=== PATIENT | male | born 1960 | race Caucasian/White ===

== ENCOUNTER 2016-05-05 12:46 | Emergency (ER) | payer BC ==
[2016-05-05 12:52] VITALS: TEMP 98; BMI 32.5
--- NOTE | 2016-05-05 14:54 | PDOC ---
History of Present Illness - General Chief Complaint: Laceration Stated Complaint: RT HAND INJURY Time Seen by Provider: 05/05/16 13:23 History Source: Patient Exam Limitations: No Limitations - History of Present Illness Initial Comments: 05/05/16 14:57 My Chief Complaint: right middle finger cut on glass History of present illness: Patient is a 55-year-old male with a history of hypertension and GERD here today after sustaining a laceration to his right middle finger cutting it on glass when emptying the garbage. He reports that last did not break with no glass was remaining and cut. Patient has a linear laceration to his right dorsal middle finger over middle phalange. He has full range of motion of right middle finger. Patient denies any numbness of finger. Pt.unsure of tetanus status. Pt. 's doc called back to say they do not have a record of him having his tetanus done there. Pt. had left when his MD's office called back, his or he will call them to follow up to ensure tetanus is done, they were told that he could return her for tetanus but would have to re register. 05/05/16 21:39 Occurred: reports: just prior to arrival Severity: reports: mild Pain Location: reports: upper extremity (rt. middle finger dorsal aspect laceration ) Method of Injury: Yes: other (cut by piece of glass rt. middle dorsal finger) Loss of Consciousness: no loss of consciousness (cut by glass) Past History - Past Medical History Allergies/Adverse Reactions: Allergies Allergy/AdvReac Type Severity Reaction Status Date / Time No Known Allergies Allergy Verified 05/05/16 12:48 Home Medications: Ambulatory Orders Lansoprazole [Prevacid -] 30 mg PO DAILY 12/16/13 Olmesartan Medoxomil [Benicar -] 20 mg PO DAILY 12/16/13 Anemia: No Asthma: No Cancer: No Cardiac Disorders: No CVA: No COPD: No CHF: No Dementia: No Diabetes: No GI Disorders: Yes (reflux) Disorders: No HTN: Yes Hypercholesterolemia: No Liver Disease: No Seizures: No Thyroid Disease: No - Surgical History Abdominal Surgery: No Appendectomy: Yes Cardiac Surgery: No Cholecystectomy: No Lung Surgery: No Neurologic Surgery: No Orthopedic Surgery: No - Psycho/Social/Smoking Cessation Hx Anxiety: No Suicidal Ideation: No Smoking Status: No Smoking History: Never smoked Have you smoked in the past 12 months: No Number of Cigarettes Smoked Daily: 0 If you are a former smoker, when did you quit?: 4 YRS AGO Information on smoking cessation initiated: No 'Breaking Loose' booklet given: 12/16/13 Hx Alcohol Use: No Drug/Substance Use Hx: No Substance Use Type: None Hx Substance Use Treatment: No Review of Systems - Review of Systems Able to Perform ROS?: Yes Constitutional: No: Symptoms Reported HEENTM: No: Symptoms Reported Respiratory: No: Symptoms reported Cardiac (ROS): No: Symptoms Reported ABD/GI: No: Symptoms Reported Musculoskeletal: No: Symptoms Reported Integumentary: Yes: Other (laceration linear rt. middle dorsal finger ) Neurological: No: Symptoms reported *Physical Exam - Vital Signs Last Vital Signs Temp Pulse Resp BP Pulse Ox 98.0 F 76 18 148/100 100 05/05/16 12:48 05/05/16 12:48 05/05/16 12:48 05/05/16 12:48 05/05/16 12:48 - Physical Exam General Appearance: Yes: Appropriately Dressed HEENT: positive: EOMI, MARIE Respiratory/Chest: positive: Lungs Clear, Normal Breath Sounds. negative: Chest Tender, Respiratory Distress Cardiovascular: positive: Regular Rhythm, Regular Rate, S1, S2 Extremity: positive: Normal Capillary Refill, Normal Range of Motion (rt. middle finger over DIP, PIP jt, and mcp jt ) Integumentary: positive: Normal Color, Other (rt. 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 middle finger), Respond to painful stimul (rt middle finger), Responsive. negative: Sensory Deficit (rt. middle finger ) Procedures - Consent Consent obtained: From Patient - Laceration/Wound Repair Right Proximal Dorsal 3rd digit Finger Wound Length: 2.6 to 5.0 cm Wound Explored: clean Wound's Depth, Shape: superficial, linear (rt. middle finger ) Irrigated w/ Saline: Yes Betadine Prep: Yes Anesthesia: 1% Lidocaine Amount of Anesthetic (ccs): 5 (digital block rt. middle finger ) Wound Repaired With: Sutures Suture Size/Type: 5:0 Number of Sutures: 5 (interrupted) Sterile Dressing Applied: Yes Progress: 05/05/16 14:56 After digital block patient started to complain of feeling lightheaded looked pale and started to become slightly diaphoretic patient's head of bed was lowered however patient did not feel better patient given O2 via nasal cannula at 3 L patient within 5 minutes was feeling much better, O2 remained for 15 minutes Medical Decision Making - Medical Decision Making 05/05/16 14:59 Patient is a 55-year-old male with a history of hypertension and GERD here today after sustaining a laceration to his right middle finger cutting it on glass when emptying the garbage. He reports that last did not break with no glass was remaining and cut. Patient has a linear laceration to his right dorsal middle finger over middle phalange. He has full range of motion of right middle finger. Patient denies any numbness of finger. He is right handed Middle finger laceration rt. Plan: digital block performed to right middle finger with 5 mL's of lidocaine 1% patient became slightly diaphoretic and complaining of lightheadedness oxygen was applied 3 L via nasal annular within 5 minutes patient started to feel better oxygen remained 15 minutes 5 sutures applied to right middle finger interrupted 05/05/16 15:08 Feeling much better will discharge to home *DC/Admit/Observation/Transfer Diagnosis at time of Disposition: Laceration - Discharge Dispostion Disposition: HOME Condition at time of disposition: Stable - Referrals Referrals: Annalisa Azevedo [Primary Care Provider] - - Patient Instructions Additional Instructions: Wound dry today then may wash tomorrow with antibacterial soap and water pat dry and apply tiny amount of bacitracin ointment twice daily cover with bandage air out at night Take ibuprofen or acetaminophen as needed as directed by tie loader for pain Return here in 10-12 days for suture removal or sooner if any redness around wound or discharge from wound or any increased warmth from wound Patient voiced understanding of discharge instructions and all questions were answered
[2016-05-05 15:16] VITALS: BP 144/8; PULSE 65
== END 2016-05-05 15:31 | disposition home or self-care (01) ==
LOC: JERFT 12:46
PROC: 0HQFXZZ Repair Right Hand Skin, External Approach (ICD-10-PCS; principal; 2016-05-05)
DX: S61.212A Laceration without foreign body of right middle finger without damage to nail, initial encounter (principal); W25.XXXA Contact with sharp glass, initial encounter; Y93.E9 Activity, other interior property and clothing maintenance; Y92.018 Other place in single-family (private) house as the place of occurrence of the external cause; Y99.8 Other external cause status
CPT/HCPCS: 99281-25

== ENCOUNTER 2017-08-18 12:36 | Emergency (ER) | payer BC ==
[2017-08-18 12:42] VITALS: TEMP 98.5; BMI 31.8
--- NOTE | 2017-08-18 14:05 | PDOC ---
History of Present Illness <Sharron Gu - Last Filed: 08/18/17 16:45> - General History Source: Patient Exam Limitations: No Limitations - History of Present Illness Initial Comments: 08/18/17 14:00 The patient is a 56M with a PMH of HTN and GERD who presents with complaints of feeling "off". The patient states that 5 days ago, he began to feel "off" which he describes as a "knot" in his stomach along with a bifrontal, dull headache. This initially started intermittently and then became constant yesterday. He also states that yesterday he took his BP and it read 202/100's. He states that he takes all of his medications as prescribed. He does admit to more stress from work. He has never had this before. He denies any CP, SOB, fever, chills, nausea, vomiting, numbness, tingling, or weakness. <Mariano Kapoor - Last Filed: 08/18/17 18:50> - General Chief Complaint: Lightheaded Stated Complaint: DIZZINESS, BP PROBLEMS Time Seen by Provider: 08/18/17 13:20 Past History <Sharron Gu - Last Filed: 08/18/17 16:45> - Past Medical History Anemia: No Asthma: No Cancer: No Cardiac Disorders: No CVA: No COPD: No CHF: No Dementia: No Diabetes: No GI Disorders: Yes (reflux) Disorders: No HTN: Yes Hypercholesterolemia: No Liver Disease: No Seizures: No Thyroid Disease: No - Surgical History Abdominal Surgery: No Appendectomy: Yes Cardiac Surgery: No Cholecystectomy: No Lung Surgery: No Neurologic Surgery: No Orthopedic Surgery: No - Suicide/Smoking/Psychosocial Hx Smoking Status: No Smoking History: Never smoked Have you smoked in the past 12 months: No Number of Cigarettes Smoked Daily: 0 If you are a former smoker, when did you quit?: 4 YRS AGO 'Breaking Loose' booklet given: 12/16/13 Hx Alcohol Use: No Drug/Substance Use Hx: No Substance Use Type: None Hx Substance Use Treatment: No <Mariano Kapoor - Last Filed: 08/18/17 18:50> - Past Medical History Allergies/Adverse Reactions: Allergies Allergy/AdvReac Type Severity Reaction Status Date / Time Penicillins Allergy Severe Difficulty Verified 08/18/17 12:48 Breathing Home Medications: Ambulatory Orders Lansoprazole [Prevacid -] 30 mg PO DAILY 12/16/13 Olmesartan Medoxomil [Benicar -] 20 mg PO DAILY 12/16/13 Review of Systems - Review of Systems Able to Perform ROS?: Yes Comments:: 08/18/17 14:16 GENERAL/CONSTITUTIONAL: No fever or chills. No weakness. HEAD, EYES, EARS, NOSE AND THROAT: No change in vision. No ear pain or discharge. No sore throat. CARDIOVASCULAR: No chest pain, palpitations, or lightheadedness. RESPIRATORY: No cough, wheezing, shortness of breath, or hemoptysis. GASTROINTESTINAL: Positive for "knot" in stomach. No nausea, vomiting, diarrhea , constipation, or abdominal pain. GENITOURINARY: No dysuria, frequency, hematuria, or change in urination. MUSCULOSKELETAL: No joint or muscle swelling or pain. No neck or back pain. SKIN: No rash or lesions. NEUROLOGIC: Positive for headache. No numbness, tingling, weakness, loss of consciousness, or change in strength/sensation. ENDOCRINE: No increased thirst. No abnormal weight change. HEMATOLOGIC/LYMPHATIC: No anemia, easy bleeding, or history of blood clots. ALLERGIC/IMMUNOLOGIC: No hives or skin allergy. Is the patient limited Slovenian proficient: No <Mariano Kapoor - Last Filed: 08/18/17 18:50> *Physical Exam - Vital Signs Last Vital Signs Temp Pulse Resp BP Pulse Ox 98.5 F 80 22 146/86 97 08/18/17 12:37 08/18/17 12:37 08/18/17 12:37 08/18/17 12:37 08/18/17 12:37 <Sharron Gu - Last Filed: 08/18/17 16:45> - Vital Signs Last Vital Signs Temp Pulse Resp BP Pulse Ox 98.5 F 80 22 146/86 97 08/18/17 12:37 08/18/17 12:37 08/18/17 12:37 08/18/17 12:37 08/18/17 12:37 - Physical Exam Comments: 08/18/17 14:18 GENERAL: Well developed, well nourished. Awake and alert. No acute distress. HEENT: Normocephalic, atraumatic. Hearing grossly normal. Moist mucous membranes. PERRLA, EOMI. No conjunctival pallor. Sclera are non-icteric. NECK: Supple. Full ROM. CARDIOVASCULAR: Regular rate and rhythm. No murmurs, rubs, or gallops. PULMONARY: No evidence of respiratory distress. Lungs clear to auscultation bilaterally. No wheezing, rales or rhonchi. ABDOMINAL: Soft. Non-tender. Non-distended. No rebound or guarding. GENITOURINARY: No CVA tenderness bilaterally. MUSCULOSKELETAL: Normal range of motion at all joints. No bony deformities or tenderness. EXTREMITIES: No cyanosis. No clubbing. No edema. No calf tenderness or swelling. SKIN: Warm and dry. Normal capillary refill. No rashes. No jaundice. NEUROLOGICAL: Alert, awake, appropriate. Cranial nerves 2-12 intact. Normal speech. Gait is normal without ataxia. PSYCHIATRIC: Cooperative. Good eye contact. Appropriate mood and affect. <Mariano Kapoor - Last Filed: 08/18/17 18:50> ED Treatment Course - LABORATORY CBC & Chemistry Diagram: 08/18/17 13:48 08/18/17 13:48 - ADDITIONAL ORDERS Additional order review: Laboratory Results 08/18/17 08/18/17 08/18/17 13:48 13:48 13:48 Sodium 140 Potassium 4.4 Chloride 104 Carbon Dioxide 29 Anion Gap 7 L BUN 10 D Creatinine 0.8 Creat Clearance w eGFR > 60 Random Glucose 90 Calcium 9.0 Total Bilirubin 0.7 D AST 84 H ALT 57 Alkaline Phosphatase 73 Creatine Kinase 110 Troponin I < 0.02 Total Protein 7.9 Albumin 4.2 Lipase Cancelled 263 Urine Color Yellow Urine Appearance Clear Urine pH 6.0 Ur Specific Rozet 1.011 Urine Protein Negative Urine Glucose (UA) Negative Urine Ketones Negative Urine Blood Negative Urine Nitrite Negative Urine Bilirubin Negative Urine Urobilinogen Negative Ur Leukocyte Esterase Trace Urine WBC (Auto) 1 Urine RBC (Auto) None 08/18/17 13:48 RBC 4.71 MCV 96.1 H MCHC 35.5 RDW 13.1 MPV 7.2 L Neutrophils % 72.7 Lymphocytes % 17.3 Monocytes % 8.2 Eosinophils % 1.2 Basophils % 0.6 <Sharron Gu - Last Filed: 08/18/17 16:45> - LABORATORY CBC & Chemistry Diagram: 08/18/17 13:48 08/18/17 13:48 - RADIOLOGY Radiology Studies Ordered: Category Date Time Status CHEST PA & LAT [RAD] Stat Radiology 08/18/17 13:58 Ordered <Mariano Kapoor - Last Filed: 08/18/17 18:50> Medical Decision Making - Medical Decision Making 08/18/17 16:46 Dr. Annalisa Azevedo was paged and notified via phone service. <Sharron Gu - Last Filed: 08/18/17 16:45> - Medical Decision Making 08/18/17 14:19 The patient is a 56M with a PMH of HTN and GERD who presents to the ER with complaints of "feeling off" which includes a "knot" in his stomach and a bifrontal h/a. With his BP read of 200's/100's, I have some concern for end- organ damage. Will order basic labs, UA, EKG, CXR to r/o ACS and possible underlying infections causing the patient's presentation. BP is 148/80's in our ER so I am less concerned for dissection and stroke. Pt also denies any FND and has none on exam. Pending labs, imaging, and EKG. 08/18/17 15:50 Labs, imaging, and EKG WNL. Will add CTH to r/o intracranial process. Pt updated. 08/18/17 16:42 Will repeat troponin. Pending CTH. 08/18/17 18:06 CTH negative. Pending repeat trop. 08/18/17 18:49 Repeat trop negative. Will d/c home with PCP f/u. <Mariano Kapoor - Last Filed: 08/18/17 18:50> *DC/Admit/Observation/Transfer <Sharron Gu - Last Filed: 08/18/17 16:45> - Discharge Dispostion Decision to Admit order: No <Mariano Kapoor - Last Filed: 08/18/17 18:50> Diagnosis at time of Disposition: Chest pain Qualifiers: Chest pain type: unspecified Qualified Code(s): R07.9 - Chest pain, unspecified - Discharge Dispostion Disposition: HOME Condition at time of disposition: Stable - Referrals Referrals: Annalisa Azevedo [Primary Care Provider] - - Patient Instructions Printed Discharge Instructions: DI for Atypical Chest Pain Additional Instructions: Please follow up with your primary care physician in 2-3 days. Please return to the ER if you have any signs or symptoms of chest pain, shortness of breath, uncontrollable fever, chills, nausea, vomiting, numbness, tingling, or weakness in any part of your body, changes in vision, or slurred speech. Please take your medications as prescribed. Please return to the ER if symptoms persist, worsen, or new symptoms arise. - Post Discharge Activity
--- NOTE | 2017-08-18 14:05 | PDOC ---
Attending Attestation - HPI HPI: 08/18/17 14:17 The patient is a 56-year-old male, with a significant past medical history of HTN and GERD, who presents to the ED with elevated blood pressure today. On exam, the patient states that he has been experiencing chest pressure and a mild frontal headache. He reports that he is recently under a great amount of stress because of his sick dog that might have to be put down. He takes all his medications as prescribed but reports checking his BP at home and noting it to be high at 202/100. He denies having a previous cardiac stress test or family history of heart disease. He denies any fever, chills, nausea, vomiting, diarrhea, or abdominal pain. He denies any shortness of breath. He denies any dysuria, hematuria, frequency, urgency, or hesitancy. Allergies: Penicillins Surgical Hx: Appendectomy PCP: Dr. Annalisa Azevedo <Sharron Gu - Last Filed: 08/18/17 16:45> - Resident Resident Name: Mariano Kapoor - ED Attending Attestation I have performed the following: I have examined & evaluated the patient, The case was reviewed & discussed with the resident, I agree w/resident's findings & plan, Exceptions are as noted - Physicial Exam PE: 08/18/17 16:15 awake alert NAD lungs clear bilaterally heart rrr no mrg. abd soft nt nd. no massess. ext wwp no edema. nuero a&0x 3. moves all four ext. facies symmetric - Medical Decision Making 08/18/17 16:15 hypertension. r/o end organ damage. labs ekg reassess. head ct r/o ich, cxr r/o cardiomegaly, chf. will require repeat trop r/o acs. ekg <Elaine Del aCstillo - Last Filed: 09/10/17 09:05> Heart Score/ECG Review #1 General ECG Interpretation: Sinus Rhythm, Normal Rate (63), Normal Intervals, No acute ischemic changes (TWI III) <Elaine Del Castillo - Last Filed: 09/10/17 09:05> Attestations - Attestations 08/18/17 14:23 Documentation prepared by Sharron Gu, acting as nurses medical assistants phlebotomists for Elaine Del Castillo MD. <Sharron Gu - Last Filed: 08/18/17 16:45>
[2017-08-18 14:10] LABS: BASO % 0.6 % (0-2.0); EOS % 1.2 % (0-4.5); HEMATOCRIT 45.2 % (35.4-49); HEMOGLOBIN 16.1 GM/dL (11.7-16.9); LYMPH % 17.3 % (8-40); MCH 34.1 pg (25.7-33.7); MCHC 35.5 g/dl (32.0-35.9); MEAN CELL VOLUME 96.1 fl (80-96); MEAN PLT VOLUME 7.2 fl (7.5-11.1); MONO % 8.2 % (3.8-10.2); NEUT % 72.7 % (42.8-82.8); PLATELET COUNT 158 K/MM3 (134-434); RBC 4.71 M/mm3 (4.00-5.60); RDW 13.1 % (11.9-15.9); WHITE BLOOD COUNT 5.8 K/mm3 (4.0-10.0)
[2017-08-18 14:24] LABS: URINE APPEARANCE CLEAR; URINE BILIRUBIN NEGATIVE (<2.0 mg/dL); URINE COLOR YELLOW; URINE GLUCOSE (UA) NEGATIVE (NEGATIVE); URINE KETONE NEGATIVE (NEGATIVE); URINE LEUK ESTERASE TRACE (NEGATIVE); URINE NITRITE NEGATIVE (NEGATIVE); URINE PROTEIN NEGATIVE (NEGATIVE); URINE UROBILINOGEN NEGATIVE mg/dL (0.2-1.0)
[2017-08-18 14:29] LABS: ALBUMIN 4.2 g/dl (3.4-5.0); ANION GAP 7 (8-16); BILIRUBIN,TOTAL 0.7 mg/dL (0.2-1.0); BLOOD UREA NITROGEN 10 mg/dL (7-18); CHLORIDE 104 mmol/L (98-107); CO2 29 mmol/L (21-32); CREATININE 0.8 mg/dL (0.7-1.3); GLUCOSE,RANDOM 90 mg/dL (74-106); LIPASE 263 U/L (73-393); POTASSIUM 4.4 mmol/L (3.5-5.1); SGOT/AST 84 U/L (15-37); SGPT/ALT 57 U/L (12-78); SODIUM 140 mmol/L (136-145); TOT PROT 7.9 g/dl (6.4-8.2)
[2017-08-18 14:32] LABS: ALK PHOS 73 U/L (45-117)
[2017-08-18 19:08] VITALS: BP 148/101; PULSE 69
--- NOTE | 2017-08-19 13:28 | EKG ---
Test Reason : Blood Pressure : / mmHG Vent. Rate : 063 BPM Atrial Rate : 063 BPM P-R Int : 170 ms QRS Dur : 098 ms QT Int : 404 ms P-R-T Axes : 030 -13 020 degrees QTc Int : 413 ms NORMAL SINUS RHYTHM NORMAL ECG WHEN COMPARED WITH ECG OF 16-DEC-2013 09:46, NO SIGNIFICANT CHANGE WAS FOUND Confirmed by PILLO CHATMAN MD ([id number]) on 08/19/2017 1:28:31 PM Referred By: Confirmed By:PILLO CHATMAN MD
== END 2017-08-18 19:06 | disposition home or self-care (01) ==
LOC: JER 12:36
DX: R07.9 Chest pain, unspecified (principal); K21.9 Gastro-esophageal reflux disease without esophagitis; I10 Essential (primary) hypertension
CPT/HCPCS: 36415; 70450-TC; 71046-TC-FY; 80053; 81003; 81015; 82550; 83690; 84484; 85025; 93005; 93010; 99284-25

== ENCOUNTER 2023-05-18 04:38 | Day surgery (SDC) | payer BC ==
[2023-05-17 09:27] VITALS: BMI 29.9
[2023-05-18 12:02] VITALS: TEMP 98.2
[2023-05-18 12:44] VITALS: BP 140/89; PULSE 67; RESP 18
== END 2023-05-18 12:44 | disposition home or self-care (01) ==
LOC: JASU-ENDO 04:38
PROVIDERS: ATTEND Internal Medicine Gastroenterology
PROC: 0DBN8ZX Excision of Sigmoid Colon, Via Natural or Artificial Opening Endoscopic, Diagnostic (ICD-10-PCS; principal; 2023-05-18 10:00)
DX: Z12.11 Encounter for screening for malignant neoplasm of colon (principal); K63.5 Polyp of colon; K57.30 Diverticulosis of large intestine without perforation or abscess without bleeding; Z80.0 Family history of malignant neoplasm of digestive organs; I10 Essential (primary) hypertension
CPT/HCPCS: 88305-TC

== ENCOUNTER 2024-03-10 08:36 | Inpatient (IN) | payer BC ==
[2024-03-10 08:57] VITALS: BMI 31.4
[2024-03-10] MEDS ORDERED: ACETAMINOPHEN INJECTION 100 ML ONE (09:32)
[2024-03-10] MEDS ORDERED: chlordiazePOXIDE HCL 25 MG CAPSULE ONE (09:32)
[2024-03-10] MEDS: ACETAMINOPHEN 1000 MG/100 ML BAG IVPB ONE (09:35)
[2024-03-10] MEDS: chlordiazePOXIDE HCL 25 MG CAPSULE PO ONE (09:35)
[2024-03-10] MEDS: SODIUM CHLORIDE 0.9% 1000 ML INFUS.BAG IV ONE (09:35)
[2024-03-10 09:38] LABS: HEMATOCRIT 45.9 % (35.4-49); HEMOGLOBIN 15.8 G/dL (11.7-16.9); MCH 36.1 pg (25.7-33.7); MCHC 34.4 g/dl (32.0-35.9); MEAN CELL VOLUME 104.7 fl (80-96); MEAN PLT VOLUME 7.5 fl (7.5-11.1); PLATELET COUNT 105.7 10^3/uL (134-434); RBC 4.38 10^6/uL (4.00-5.60); RDW 12.9 % (11.9-15.9)
[2024-03-10 09:55] LABS: PLATELET ESTIMATE ADEQUATE
[2024-03-10 09:59] LABS: ALBUMIN 4.4 g/dl (3.4-5.0); BILIRUBIN,TOTAL 1.8 mg/dl (0.2-1); CALCIUM 9.4 mg/dl (8.5-10.1); MAGNESIUM 1.2 mg/dL (1.8-2.4); POTASSIUM 4.2 mmol/L (3.5-5.1); TOT PROT 7.4 g/dl (6.4-8.2)
[2024-03-10] MEDS ORDERED: MAGNESIUM SULFATE IN WATER 2 GM/50 ML IVPB IVPB ONE (10:39)
[2024-03-10] MEDS: MAGNESIUM SULF 50% (8.12 MEQ/2 ML-1 GM VIAL) IVPB ONE (10:43)
[2024-03-10 11:59] LABS: HIV INTERPRETATION NEGATIVE (NEGATIVE)
[2024-03-10] MEDS ORDERED: KETOROLAC TROMETHAMINE 15 MG/ML VIAL ONE (12:22)
[2024-03-10] MEDS: KETOROLAC TROMETHAMINE 15 MG/ML VIAL IVPUSH ONE (12:51)
[2024-03-10] MEDS: oxyCODONE HCL 5 MG TABLET PO ONE (15:20)
[2024-03-10] MEDS ORDERED: morphine CARPU-JECT 2 MG/1 ML DISP.SYRIN IVPUSH PRN (17:54)
[2024-03-10] MEDS: THIAMINE 100 MG TABLET PO SCH (18:21)
[2024-03-10] MEDS: MULTIVITAMINS (DAILY MVI) TABLET (FP) PO SCH (18:22)
[2024-03-10] MEDS: LORazepam 1 MG TABLET PO SCH (18:23)
[2024-03-10] MEDS: FOLIC ACID 1 MG TABLET (FP) PO SCH (18:23)
[2024-03-10] MEDS: MELATONIN 5 MG TABLETS PO SCH (22:38)
[2024-03-10] MEDS: ACETAMINOPHEN 1000 MG/100 ML BAG IVPB PRN (22:49)
[2024-03-11 09:36] LABS: ALBUMIN 3.9 g/dl (3.4-5.0); BILIRUBIN,TOTAL 1.5 mg/dl (0.2-1); CALCIUM 8.8 mg/dl (8.5-10.1); CREATININE 0.9 mg/dl (0.6-1.3); MAGNESIUM 1.6 mg/dL (1.8-2.4); PHOSPHOROUS 2.6 (2.5-4.9); TOT PROT 6.5 g/dl (6.4-8.2)
[2024-03-11 09:49] LABS: BASO % 0.6 % (0-2.0); HEMATOCRIT 39.6 % (35.4-49); HEMOGLOBIN 13.9 GM/dL (11.7-16.9); LYMPH % 22.1 % (8-40); MCH 36.5 pg (25.7-33.7); MCHC 35.2 g/dl (32.0-35.9); MEAN CELL VOLUME 103.5 fl (80-96); MEAN PLT VOLUME 7.6 fl (7.5-11.1); MONO % 8.8 % (3.8-10.2); NEUT % 66.5 % (42.8-82.8); PLATELET COUNT 105 10^3/uL (134-434); RBC 3.82 M/mm3 (4.00-5.60); WHITE BLOOD COUNT 4.1 K/mm3 (4.0-10.0)
[2024-03-11] MEDS: amLODIPine BESYLATE 5 MG TABLET (FP) PO SCH (12:58)
[2024-03-11] MEDS: cloNIDine HCL 0.1 MG TABLET PO SCH (16:28)
[2024-03-11] MEDS: LORazepam 1 MG TABLET PO PRN (18:46)
[2024-03-11] MEDS: LORazepam 2 MG/ML SDV VIAL IVPUSH ONE (23:37)
[2024-03-12] MEDS ORDERED: metoPROLOL SUCCINATE 25 MG TAB.SR.24H (FP) PO ONE (01:20)
[2024-03-12] MEDS: MELATONIN 5 MG TABLETS PO PRN (01:37)
[2024-03-12] MEDS: LORazepam 2 MG/ML SDV VIAL IVPUSH PRN (04:30)
[2024-03-12] MEDS: LORazepam 1 MG TABLET PO SCH (04:30)
[2024-03-12 09:40] LABS: ALBUMIN 4.2 g/dl (3.4-5.0); BILIRUBIN,TOTAL 1.9 mg/dl (0.2-1); CALCIUM 9.3 mg/dl (8.5-10.1); POTASSIUM 3.8 mmol/L (3.5-5.1); TOT PROT 6.7 g/dl (6.4-8.2)
[2024-03-12 13:57] LABS: BASO % 0.6 % (0-2.0); EOS % 1.2 % (0-4.5); HEMATOCRIT 40.7 % (35.4-49); HEMOGLOBIN 14.2 GM/dL (11.7-16.9); LYMPH % 15.2 % (8-40); MCH 36.5 pg (25.7-33.7); MCHC 34.9 g/dl (32.0-35.9); MEAN CELL VOLUME 104.7 fl (80-96); MEAN PLT VOLUME 7.2 fl (7.5-11.1); MONO % 10.6 % (3.8-10.2); NEUT % 72.4 % (42.8-82.8); PLATELET COUNT 127 10^3/uL (134-434); RBC 3.89 M/mm3 (4.00-5.60); RDW 14.1 % (11.9-15.9); WHITE BLOOD COUNT 7.3 K/mm3 (4.0-10.0)
[2024-03-12] MEDS: ACETAMINOPHEN 325 MG TABLET (FP) PO ONE (20:02)
[2024-03-13] MEDS ORDERED: LORazepam 0.5 MG TABLET PO PRN
[2024-03-13 06:52] VITALS: RESP 18
[2024-03-13 09:24] LABS: ALBUMIN 3.9 g/dl (3.4-5.0); CALCIUM 9.3 mg/dl (8.5-10.1); CREATININE 0.9 mg/dl (0.6-1.3); POTASSIUM 3.7 mmol/L (3.5-5.1); TOT PROT 6.6 g/dl (6.4-8.2)
[2024-03-13 09:38] LABS: BASO % 1.2 % (0-2.0); EOS % 2.5 % (0-4.5); HEMATOCRIT 39.5 % (35.4-49); HEMOGLOBIN 14.3 GM/dL (11.7-16.9); MCH 37.1 pg (25.7-33.7); MCHC 36.3 g/dl (32.0-35.9); MEAN CELL VOLUME 102.1 fl (80-96); MEAN PLT VOLUME 7.1 fl (7.5-11.1); MONO % 11.3 % (3.8-10.2); PLATELET COUNT 129 10^3/uL (134-434); RBC 3.87 M/mm3 (4.00-5.60); RDW 14.1 % (11.9-15.9); WHITE BLOOD COUNT 6.2 K/mm3 (4.0-10.0)
[2024-03-13] MEDS: LORazepam 0.5 MG TABLET PO SCH (10:37)
[2024-03-13 10:49] VITALS: BP 127/88; PULSE 81; TEMP 98.2
[2024-03-13] MEDS ORDERED: MAGNESIUM SULF 50% (8.12 MEQ/2 ML-1 GM VIAL) IVPB ONE (10:53)
[2024-03-13] MEDS: MAGNESIUM SULFATE IN WATER 2 GM/50 ML IVPB IVPB ONE (11:24)
[2024-03-14] MEDS ORDERED: LORazepam 0.5 MG TABLET PO ONE (05:00)
== END 2024-03-13 18:09 | disposition home or self-care (01) | DRG 184 ==
LOC: FER 08:36 → FM/S 12:51 → OBSVTOIN 17:51
DX: S22.41XA Multiple fractures of ribs, right side, initial encounter for closed fracture (principal); F10.239 Alcohol dependence with withdrawal, unspecified; I10 Essential (primary) hypertension; K21.9 Gastro-esophageal reflux disease without esophagitis; F51.3 Sleepwalking [somnambulism]; R11.10 Vomiting, unspecified; R19.7 Diarrhea, unspecified; E83.42 Hypomagnesemia; E86.0 Dehydration; E66.9 Obesity, unspecified; Z68.21 Body mass index [BMI] 21.0-21.9, adult; W17.89XA Other fall from one level to another, initial encounter; Y92.099 Unspecified place in other non-institutional residence as the place of occurrence of the external cause; Y99.9 Unspecified external cause status
CPT/HCPCS: 0241U-QW; 36415; 70450-TC; 71260-TC; 72125-TC; 74177-TC; 80053; 80061; 81003; 83036; 83735; 84100; 84439; 84443; 84484; 85025; 85027; 85730; 86803; 87389; 93005; 99291; G0378; J0131; Q9967